=== PATIENT | female | born 1950 | race Caucasian/White ===

== ENCOUNTER → 2017-11-14 | Outpatient (CLI) | payer OTHER, MEDICARE ==
[~2017-11-14] MED LIST: IOPAMIDOL (ISOVUE 370) 100 ML BTL IV ONE
== END ==
LOC: FIMAGING 10:56
PROVIDERS: ATTEND Surgery
DX: I70.8 Atherosclerosis of other arteries (principal); J43.2 Centrilobular emphysema; R91.1 Solitary pulmonary nodule; I71.4 Abdominal aortic aneurysm, without rupture
CPT/HCPCS: 73206; Q9967; 82565-PO

== ENCOUNTER → 2018-01-31 | Day surgery (SDC) | payer OTHER, MEDICARE ==
[~2018-01-31] MED LIST changes: +ALTEPLASE 2 MG VIAL IVP PRN; +FLUMAZENIL 0.5 MG/5 ML MDV IVP PRN; +HEPARIN 10,000 UNIT/10 ML MDV (1,000 UNIT/ML) IVP PRN; +HEPARIN 1000 UNIT/1 ML MDV ONE; -IOPAMIDOL (ISOVUE 370) 100 ML BTL IV ONE; +IOPAMIDOL (ISOVUE-300) 100 ML BTL ONE; +LIDOCAINE 1% 300 MG/30 ML SDV ONE; +MEPERIDINE 25 MG/ML SYR IVP PRN; +MIDAZOLAM 2 MG/2 ML VIAL IVP PRN; +NALOXONE HCL 0.4 MG/ML INJ IVP PRN; +NS 1,000 ML IV SCH; +ONDANSETRON 4 MG/2 ML VIAL IVP PRN; +OXYCODONE/APAP 5/325 TAB PO PRN; +PROTAMINE SULFATE 50 MG/5 ML VIAL IVP PRN; +fentaNYL 100 MCG/2 ML INJ IVP PRN
[2018-01-31 10:30] LABS: INR 0.94 (0.83-1.16); PROTIME(PATIENT) 12.8 SEC (12.0-15.0)
[2018-01-31 13:59] VITALS: BP 113/60
--- NOTE | 2018-01-31 14:03 | PDPROPOC ---
Sedation Plan of Care ASA Classification: ASA 2 Mallampati Score: Class 2 Mallampati Reference Image:
--- NOTE | 2018-01-31 14:03 | PDRADPRE ---
Radiology History & Physical Indication for procedure: other (left hand pain) Home medications: Levothyroxine 75 mcg PO DAILY 01/29/18 [Last Taken 01/30/18] Diltiazem HCl [Diltiazem 12Hr ER] 120 mg PO BID 01/31/18 [Last Taken 01/30/18] Allergies/Adverse Reactions: No Known Allergies Allergy (Unverified 01/29/18 10:28) Mental status: A&Ox3
--- NOTE | 2018-01-31 14:05 | PDRADPN ---
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
== END | disposition home or self-care (01) ==
LOC: FIMAGING 09:15
PROVIDERS: ATTEND Radiology Diagnostic Radiology
PROC: B34JZZ3 Ultrasonography of Left Upper Extremity Arteries, Intravascular (ICD-10-PCS; principal; 2018-01-31)
DX: I70.8 Atherosclerosis of other arteries (principal); F17.210 Nicotine dependence, cigarettes, uncomplicated
CPT/HCPCS: 36200; 75710; 76937; 99152; 99153; C1769; C1887; C1894; J1644; J2250; J2310; J3010; Q9967